=== PATIENT | female | born 1995 | race Caucasian/White ===

== ENCOUNTER 2021-05-16 10:25 | Inpatient (IN) | payer BC ==
[2021-05-16] MEDS ORDERED: Lidocaine 1% 50 ML MDV INJECT ONE (19:41)
[2021-05-16] MEDS ORDERED: Nalbuphine 10 MG/1 ML Vial IVPUSH PRN (19:41)
[2021-05-16] MEDS ORDERED: Sodium Chloride 0.9% 10 ML Syringe FLUSH PRN (19:41)
[2021-05-16] MEDS ORDERED: Ampicillin 2 GM in Sodium Chloride 0.9% 100 ML IV ONE (19:41)
[2021-05-16] MEDS ORDERED: Ondansetron 4 MG/2 ML SDV IVPUSH PRN (19:41)
[2021-05-16] MEDS ORDERED: Oxytocin/Lactated Ringers 10 UNIT/1,000 ML BAG IV SCH ×2 (19:45)
--- NOTE | 2021-05-16 22:21 | PCM.LDHP ---
L&D History of Present Illness - General Date of Service: 05/16/21 Admit Problem/Dx: Patient Status Order with Admit Dx/Problem 05/16/21 19:41 Patient Status [ADT] Routine Admission Diagnosis/Problem Admission Diagnosis/Problem 05/16/21 22:12 Yanna is a 25-year-old 2 para 1-0-0-1 female admitted on the evening of 05/16/2021 at 39-0/7 weeks gestational age with an HEAVENLY of 05/23/2021 for elective induction of labor. Source of Information: Patient, Other History Limitations: Reports: No Limitations - History of Present Illness Introduction:: Yanna is a 25-year-old 2 para 1-0-0-1 female admitted on the evening of 05/16/2021 at 39-0/7 weeks gestational age with an HEAVENLY of 05/23/2021 for elective induction of labor. The process of induction of labor, its risks, benefits, limitations and alternatives of care including allowing for natural onset of labor are discussed in detail with patient and her Octavio. They appear to understand and wish to proceed. ONSITE HEALTH COACH history: Patient is 2 para 1-0-0-1. Patient had menarche at usual of age. Cycles q. 25 days. She was not on control pills at the time conception. Her LMP was 08/16/2020 which is how her was dated. That HEAVENLY is supported by at least 3 ultrasounds done through the course of the . Her past obstetric history includes the followin. Male infant born 07/01/2019 at 39-1/7 weeks gestational age8 pounds 0 ounces. . Epidural for labor analgesia. Baby was born at [facility]. course: Patient was seen since early in . First visit was at 10 weeks and 4 days. She was seen on a very regular basis. Weight gain has been from 203 pounds up to 232 pounds for 29 pound increase. Her vital signs remained stable throughout the course and her fundal height growth was appropriate. Patient is group B strep positive as diagnosed on initial urine culture at first visit. She is hypothyroid and is on [place] Thyroid replacement. She had her initial complete ultrasound showed prominent appearing renal pelvis ease. On reevaluation at 30 weeks normal kidney and bladder were present. Her Tdap was done on 05/08/2021. Second trimester thyroid function studies were normal. Initial thyroid function studies on 10/16/2020 were also normal. She is clinically euthyroid. Patient is rubella immune. She had her hepatitis B immunizations in 1995. Her meningococcal immunizations in 2012. Laboratory testing shows blood to be all positive with a negative MB screen. First hemoglobin was 12.8 g/dL and platelets are 370,000. She is rubella immune. RPR is nonreactive. Urine culture was positive for group B strep. Hepatitis B surface antigen and HIV assays along with chlamydia and gonorrhea tests were both negative. Last TSH done on 02/25/2021 was 1.05 which is normal. Her 1 hour GTT was normal at 104. Second trimester hemoglobin was 11.7 g/dL and platelets are 345,000. Her RPR done on 02/26/2021 was nonreactive. Allergies: None Medications: 1. Kalida Thyroid 15 mg p.o. daily and 30 mg p.o. daily for a total of 45 mg p.o. daily 2. vitamins daily 3. Fish oil caps Past medical history: 1. x1. 2 hypothyroidism diagnosed in 2017 now on [place] Thyroid. 3. Tonsillectomy 2013. Family history: Mother and father are alive and well. 1 sister and one half sister alive and well. Maternal grandmother is alive with breast cancer diagnosed at age 74 years. Paternal grandfather secondary to an VT at age 62. Paternal grandmother alive and well but had gallbladder cancer. Was a smoker is now age 77. Paternal grandfather is alive at age 75 with coronary artery bypass surgery. No anesthesia, bleeding, blood clotting or problems noted in the family. Social history: Patient is . She is a chicken dresser, lives in [place], [place]. She she denies any significant also alcohol, drugs or tobacco. Her 's name is Octavio. Review of systems: In general patient has no complaints. Baby has been active. Skin: Negative Lungs: No infectious symptoms or shortness of breath Cardiovascular: No chest pain or exercise intolerance Breasts: No lumps, changes in size, pain, dimpling, discharge or axillary or supraclavicular concerns. Changes associated with . GI: Negative : Body habitus changes consistent with . Musculoskeletal: Negative Neurological: Negative Physical exam: In general the patient is well-developed, well-nourished, pleasant female of stated age in no acute distress. On last evaluation clinic on 05/13/2021 blood pressure was 108/68. Weight was 232 pounds with pregravid weight 203 pounds for a 29 pound increase. Height is 5 feet 5 inches. Prepregnancy body mass index is 32.1. Skin is warm dry without lesions. HEENT, neck and back within normal limits. Lungs are clear with good breath sounds in all lung yadav. Cardiovascular exam shows regular and rhythm without murmurs. Breast exam done at first annual visit was within normal is. Is not repeated at this time. Patient plans to breast-feed. Abdomen is gravid with last fundal height in clinic at 39.5 cm. Baby in vertex presentation by Melchor maneuvers. Genital exam on last evaluation clinic on 05/13/2021 was 2 cm dilated, 60% effaced, very soft, mid position, -3 station.. Extremities and neurological exam are grossly within normal limits with the exception of trace edema in bilateral lower extremities. - Related Data Allergies/Adverse Reactions: Allergies Allergy/AdvReac Type Severity Reaction Status Date / Time No Known Allergies Allergy Verified 06/30/19 19:49 Home Medications: Home Meds Pnv No.95/Ferrous Fum/Folic AC [ Tablet] 1 each PO DAILY 06/30/19 [History] Thyroid [Kal[place] Thyroid] 1 tab PO DAILY 06/30/19 [History] Docusate Sodium [Colace] 100 mg PO BID PRN cap 07/02/19 [Rx] Ibuprofen [Motrin] 600 mg PO Q4H PRN tablet 07/02/19 [Rx] Past Medical History - Past Health History Medical/Surgical History: Denies Medical/Surgical History Cardiovascular History: Reports: None Respiratory History: Reports: None Gastrointestinal History: Reports: GERD Genitourinary History: Reports: None ONSITE HEALTH COACH History: Reports: Musculoskeletal History: Reports: None Neurological History: Reports: None Psychiatric History: Reports: None Endocrine/Metabolic History: Reports: Hypothyroidism Hematologic History: Reports: Anemia, Other (See Below) Other Hematologic History: Pt taking a daily Iron supplement Immunologic History: Reports: None Oncologic (Cancer) History: Reports: None Dermatologic History: Reports: None - Past Surgical History Head Surgeries/Procedures: Reports: None HEENT Surgical History: Reports: Oral Surgery, Tonsillectomy GI Surgical History: Reports: Other (See Below) Other GI Surgeries/Procedures: Endoscopy Social & Family History - Family History Family Medical History: No Pertinent Family History - Tobacco Use Tobacco Use Status *Q: Never Tobacco User Second Hand Smoke Exposure: No - Caffeine Use Caffeine Use: Reports: None - Recreational Drug Use Recreational Drug Use: No H&P Review of Systems - Review of Systems: Review Of Systems: See Below L&D Exam - Exam Exam: See Below - Vital Signs Vital Signs: Last Vital Signs Temp 37.4 C 05/16/21 19:52 Pulse 90 05/16/21 19:52 Resp 16 05/16/21 19:52 BP 136/86 05/16/21 19:52 Pulse Ox 99 05/16/21 19:52 Weight: 106.503 kg - Patient Data Lab Results Last 24 hrs: Laboratory Results - last 24 hr 05/16/21 05/16/21 Range/Units 20:05 20:30 WBC 10.40 H (3.98-10.04) K/mm3 RBC 4.41 (3.98-5.22) M/mm3 Hgb 12.4 (11.2-15.7) gm/dl Hct 38.4 (34.1-44.9) % MCV 87.1 (79.4-94.8) fl MCH 28.1 (25.6-32.2) pg MCHC 32.3 (32.2-35.5) g/dl RDW Std Deviation 44.2 (36.4-46.3) fL Plt Count 316 (182-369) K/mm3 MPV 9.4 (9.4-12.3) fl Neut % (Auto) 71.0 (34.0-71.1) % Lymph % (Auto) 22.8 (19.3-51.7) % [place] % (Auto) 4.7 (4.7-12.5) % Eos % (Auto) 0.5 L (0.7-5.8) Baso % (Auto) 0.2 (0.1-1.2) % Neut # (Auto) 7.39 H (1.56-6.13) K/mm3 Lymph # (Auto) 2.37 (1.18-3.74) K/mm3 [place] # (Auto) 0.49 H (0.24-0.36) K/mm3 Eos # (Auto) 0.05 (0.04-0.36) K/mm3 Baso # (Auto) 0.02 (0.01-0.08) K/mm3 SARS-CoV-2 RNA (LINDSAY) Negative (NEGATIVE) Result Diagrams: 05/16/21 20:05 - Problem List (1) Group B streptococcal carriage complicating SNOMED Code(s): 423276893791684 ICD Code: O99.820 - STREPTOCOCCUS B CARRIER STATE COMPLICATING Status: Acute Current Visit: Yes (2) Hypothyroidism affecting in third trimester SNOMED Code(s): 108833327, 283585277 ICD Code: O99.283 - ENDO, NUTRITIONAL AND METAB DISEASES COMP PREG, THIRD TRI; E03.9 - HYPOTHYROIDISM, UNSPECIFIED Status: Acute Current Visit: Yes (3) 39 weeks gestation of SNOMED Code(s): 29415801 ICD Code: Z3A.39 - 39 WEEKS GESTATION OF Status: Acute Current Visit: No Problem List Initiated/Reviewed/Updated: Yes Orders Last 24hrs: Active Orders 24 hr Category Date Time Status Patient Status [ADT] Routine ADT 05/16/21 19:41 Active Activity as Tolerated [RC] PFP Care 05/16/21 19:41 Active Communication Order [RC] ASDIRECTED Care 05/16/21 19:41 Active Heart Tones [RC] ASDIRECTED Care 05/16/21 19:42 Active Non Stress Test [RC] PER UNIT ROUTINE Care 05/16/21 19:41 Active Notify Provider [RC] PFP Care 05/16/21 19:41 Active Notify Provider [RC] PRN Care 05/16/21 19:41 Active Peripheral IV Care [RC] . DIRECTED Care 05/16/21 19:42 Active Vital Signs [RC] PER UNIT ROUTINE Care 05/16/21 19:41 Active Regular Diet [DIET] Diet 05/16/21 Breakfast Active HEPATITIS C ANTIBODY [CHEM] Routine Lab 05/16/21 20:05 Received RAPID PLASMA REAGIN,RPR [CHEM] Routine Lab 05/16/21 20:05 Received Ampicillin 1 gm Med 05/17/21 00:00 Active Sodium Chloride 0.9% [Normal Saline] 100 ml IV Q4H Lactated Ringers [Ringers, Lactated] 1,000 ml Med 05/16/21 19:45 Active IV ASDIRECTED Nalbuphine [Nubain] Med 05/16/21 19:41 Active 10 mg IVPUSH Q2H PRN Ondansetron [Zofran] Med 05/16/21 19:41 Active 4 mg IVPUSH Q4H PRN Oxytocin/Lactated Ringers [Pitocin in LR 10 Units/1,000 Med 05/16/21 19:45 Active ML] 10 unit in 1,000 ml IV .CONTINUOUS Oxytocin/Lactated Ringers [Pitocin in LR 10 Units/1,000 Med 05/16/21 19:45 Active ML] 10 unit in 1,000 ml IV TITRATE Sodium Chloride 0.9% [Saline Flush] Med 05/16/21 19:41 Active 10 ml FLUSH ASDIRECTED PRN Electronic Heart Tones Ext w TOCO [WOMSER] Ot 05/16/21 19:41 Ordered Routine Electronic Heart Tones Internal [WOMSER] Per Unit Ot 05/16/21 19:41 Ordered Routine Peripheral IV Insertion Adult [OM.PC] Routine Oth 05/16/21 19:41 Ordered Resuscitation Status Routine Resus Stat 05/16/21 19:41 Ordered Medication Orders Ampicillin Sodium 1 gm/ Sodium (Chloride) 100 mls @ 200 mls/hr IV Q4H IZZY Oxytocin/Lactated Ringer's (Pitocin In Lr 10 Units/1,000 Ml) 10 unit in 1,000 mls @ 12 mls/hr IV TITRATE IZZY; Protocol Oxytocin/Lactated Ringer's (Pitocin In Lr 10 Units/1,000 Ml) 10 unit in 1,000 mls @ 500 mls/hr IV .CONTINUOUS IZZY Lactated Ringer's (Ringers, Lactated) 1,000 mls @ 100 mls/hr IV ASDIRECTED IZZY Nalbuphine HCl (Nalbuphine 10 Mg/1 Ml Vial) 10 mg IVPUSH Q2H PRN PRN Reason: Pain Ondansetron HCl (Ondansetron 4 Mg/2 Ml Sdv) 4 mg IVPUSH Q4H PRN PRN Reason: Nausea/Vomiting Sodium Chloride (Sodium Chloride 0.9% 10 Ml Syringe) 10 ml FLUSH ASDIRECTED PRN PRN Reason: Keep Vein Open Assessment/Plan Comment:: 1. Yanna is a 25-year-old 2 para 1-0-0-1 female admitted on the evening of 05/16/2021 at 39-0/7 weeks gestational age with an HEAVENLY of 05/23/2021 for elective induction of labor. 2. Group B strep positive statuspatient candidate for ampicillin prophylaxis per protocol in labor delivery. 3. Patient planning to breast-feed 4. Patient desiring epidural in labor and delivery. 5. Risk factors for include: Hypothyroidism, distance from the hospital, group B strep positive status. 6. Tdap given 05/08/2021 7. Patient is rubella immune. Plan: 1. Antibiotics with ampicillin per protocol for group B strep positive status. 2. Pitocin induction of labor to be followed by AROM augmentation when possible 3. Epidural as needed for patient for labor analgesia. 4. Support breast-feeding decision 5. Continue Kalida Thyroid as at present 6. Admission labs to consist of CBC, COVID-19 testing, RPR per protocol.
[2021-05-16] MEDS ORDERED: Bupivacaine/fentaNYL/NS 100 ML Bag EPIDUR PRN (23:03)
[2021-05-16] MEDS ORDERED: diphenhydrAMINE 50 MG/ML SDV IVPUSH PRN (23:03)
[2021-05-16] MEDS ORDERED: fentaNYL 100 MCG/2 ML SDV EPIDUR PRN (23:03)
[2021-05-16] MEDS: Lactated Ringers 1,000 ML IV SCH (23:07)
[2021-05-17] MEDS ORDERED: Bupivacaine 0.25% 10 ML SDV ONE
[2021-05-17] MEDS: Ampicillin 1 GM in Sodium Chloride 0.9% 100 ML IV SCH ×3 (00:04→08:08)
--- NOTE | 2021-05-17 02:29 | PCM.PREANE ---
Preanesthetic Assessment - Procedure Proposed Procedure: epidural - Anesthesia/Transfusion/Family Hx Anesthesia History: Prior Anesthesia Without Reaction Family History of Anesthesia Reaction: No Transfusion History: No Prior Transfusion(s) - Review of Systems General: Fatigue Pulmonary: No Symptoms Cardiovascular: No Symptoms Gastrointestinal: Abdominal Pain (labor) Neurological: No Symptoms Other: Reports: Thyroid Problems (hypothyroid) - Physical Assessment Vital Signs: Last Vital Signs Temp 37.4 C 05/16/21 19:52 Pulse 90 05/16/21 19:52 Resp 16 05/16/21 19:52 BP 136/86 05/16/21 19:52 Pulse Ox 99 05/16/21 19:52 Height: 1.65 m Weight: 106.503 kg ASA Class: 2 Mental Status: Alert & Oriented x3 Airway Class: Mallampati = 2 Dentition: Reports: Normal Dentition Thyro-Mental Finger Breadths: 2 Mouth Opening Finger Breadths: 2 ROM/Head Extension: Full Lungs: Clear to Auscultation, Normal Respiratory Effort Cardiovascular: Regular Rate, Regular Rhythm - Lab Values: Laboratory Last Values WBC 10.40 K/mm3 (3.98-10.04) H 05/16/21 20:05 RBC 4.41 M/mm3 (3.98-5.22) 05/16/21 20:05 Hgb 12.4 gm/dl (11.2-15.7) 05/16/21 20:05 Hct 38.4 % (34.1-44.9) 05/16/21 20:05 MCV 87.1 fl (79.4-94.8) 05/16/21 20:05 MCH 28.1 pg (25.6-32.2) 05/16/21 20:05 MCHC 32.3 g/dl (32.2-35.5) 05/16/21 20:05 RDW Std Deviation 44.2 fL (36.4-46.3) 05/16/21 20:05 Plt Count 316 K/mm3 (182-369) 05/16/21 20:05 MPV 9.4 fl (9.4-12.3) 05/16/21 20:05 Neut % (Auto) 71.0 % (34.0-71.1) 05/16/21 20:05 Lymph % (Auto) 22.8 % (19.3-51.7) 05/16/21 20:05 [place] % (Auto) 4.7 % (4.7-12.5) 05/16/21 20:05 Eos % (Auto) 0.5 (0.7-5.8) L 05/16/21 20:05 Baso % (Auto) 0.2 % (0.1-1.2) 05/16/21 20:05 Neut # (Auto) 7.39 K/mm3 (1.56-6.13) H 05/16/21 20:05 Lymph # (Auto) 2.37 K/mm3 (1.18-3.74) 05/16/21 20:05 [place] # (Auto) 0.49 K/mm3 (0.24-0.36) H 05/16/21 20:05 Eos # (Auto) 0.05 K/mm3 (0.04-0.36) 05/16/21 20:05 Baso # (Auto) 0.02 K/mm3 (0.01-0.08) 05/16/21 20:05 RPR Non-reactive (NONREACTIVE) 05/16/21 20:05 SARS-CoV-2 RNA (LINDSAY) Negative (NEGATIVE) 05/16/21 20:30 - Allergies Allergies/Adverse Reactions: Allergies Allergy/AdvReac Type Severity Reaction Status Date / Time No Known Allergies Allergy Verified 06/30/19 19:49 - Anesthesia Plan Pre-Op Medication Ordered: None - Acknowledgements Anesthesia Type Planned: Epidural Pt an Appropriate Candidate for the Planned Anesthesia: Yes Alternatives and Risks of Anesthesia Discussed w Pt/Guardian: Yes Pt/Guardian Understands and Agrees with Anesthesia Plan: Yes PreAnesthesia Questionnaire - Past Health History Medical/Surgical History: Denies Medical/Surgical History Cardiovascular History: Reports: None Respiratory History: Reports: None Gastrointestinal History: Reports: GERD Genitourinary History: Reports: None CHECK VIEWER History: Reports: Musculoskeletal History: Reports: None Neurological History: Reports: None Psychiatric History: Reports: None Endocrine/Metabolic History: Reports: Hypothyroidism Hematologic History: Reports: Anemia, Other (See Below) Other Hematologic History: Pt taking a daily Iron supplement Immunologic History: Reports: None Oncologic (Cancer) History: Reports: None Dermatologic History: Reports: None - Past Surgical History Head Surgeries/Procedures: Reports: None HEENT Surgical History: Reports: Oral Surgery, Tonsillectomy GI Surgical History: Reports: Other (See Below) Other GI Surgeries/Procedures: Endoscopy - SUBSTANCE USE Tobacco Use Status *Q: Never Tobacco User Second Hand Smoke Exposure: No Recreational Drug Use History: No - HOME MEDS Home Medications: Home Meds Pnv No.95/Ferrous Fum/Folic AC [ Tablet] 1 each PO DAILY 06/30/19 [History] Thyroid [[place] Thyroid] 1 tab PO DAILY 06/30/19 [History] Ferrous Sulfate [Iron] 1 tab PO DAILY 05/16/21 [History] Fish Oil/[place]-3 Fatty Acids [Fish Oil 1,000 MG] 1 tab PO DAILY 05/16/21 [History] Omeprazole Magnesium [Prilosec] 1 tab PO DAILY 05/16/21 [History] - CURRENT (IN HOUSE) MEDS Current Meds: Current Medications Diphenhydramine HCl (Diphenhydramine 50 Mg/Ml Sdv) 25 mg IVPUSH Q6H PRN PRN Reason: pruritis Ephedrine Sulfate (Ephedrine 50 Mg/Ml Sdv) 5 mg IVPUSH ASDIRECTED PRN PRN Reason: Hypotension Fentanyl (Fentanyl 100 Mcg/2 Ml Sdv) 100 mcg EPIDUR Q3H PRN PRN Reason: Pain Last Admin: 05/17/21 01:56 Dose: 100 mcg Documented by: Fentanyl/Bupivacaine HCl (Bupivacaine/Fentanyl/Ns 100 Ml Bag) 100 ml EPIDUR ASDIRECTED PRN PRN Reason: Pain Last Admin: 05/17/21 01:56 Dose: 100 ml Documented by: Ampicillin Sodium 1 gm/ Sodium (Chloride) 100 mls @ 200 mls/hr IV Q4H IZZY Last Admin: 05/17/21 00:04 Dose: 200 mls/hr Documented by: Oxytocin/Lactated Ringer's (Pitocin In Lr 10 Units/1,000 Ml) 10 unit in 1,000 mls @ 12 mls/hr IV TITRATE IZZY; Protocol Last Titration: 05/17/21 01:35 Dose: 6 munits/min, 36 mls/hr Documented by: Oxytocin/Lactated Ringer's (Pitocin In Lr 10 Units/1,000 Ml) 10 unit in 1,000 mls @ 500 mls/hr IV .CONTINUOUS IZZY Lactated Ringer's (Ringers, Lactated) 1,000 mls @ 100 mls/hr IV ASDIRECTED IZZY Last Admin: 05/16/21 23:07 Dose: 100 mls/hr Documented by: Nalbuphine HCl (Nalbuphine 10 Mg/1 Ml Vial) 10 mg IVPUSH Q2H PRN PRN Reason: Pain Ondansetron HCl (Ondansetron 4 Mg/2 Ml Sdv) 4 mg IVPUSH Q4H PRN PRN Reason: Nausea/Vomiting Sodium Chloride (Sodium Chloride 0.9% 10 Ml Syringe) 10 ml FLUSH ASDIRECTED PRN PRN Reason: Keep Vein Open Discontinued Medications Ampicillin Sodium 2 gm/ Sodium (Chloride) 100 mls @ 200 mls/hr IV ONETIME ONE Stop: 05/16/21 20:10 Last Admin: 05/16/21 20:35 Dose: 200 mls/hr Documented by: Lidocaine HCl (Lidocaine 1% 50 Ml Mdv) 50 ml INJECT ONETIME ONE Stop: 05/16/21 19:42
[2021-05-17] MEDS: ePHEDrine 50 MG/ML SDV IVPUSH PRN ×6 (02:35→05:39)
[2021-05-17] MEDS: Lactated Ringers 1,000 ML IV SCH ×2 (02:40→03:19)
[2021-05-17] MEDS ORDERED: Docusate Sodium 100 MG Cap PO PRN (11:03)
[2021-05-17] MEDS ORDERED: Benzocaine/Menthol 20%-0.5% Spray 56 GM Canister TOP PRN (11:03)
[2021-05-17] MEDS ORDERED: Acetaminophen 325 MG Tab PO PRN (11:03)
[2021-05-17] MEDS ORDERED: Witch Hazel Medicated Pads 40/Jar TOP PRN (11:03)
--- NOTE | 2021-05-17 11:09 | PCM.SN.2 ---
- Free Text/Narrative Note: Delivery note: Stage I: Yanna is a 25-year-old 2 para 1-0-0-1 female admitted on the evening of 05/16/2021 at 39-0/7 weeks gestational age with an HEAVENLY of 05/23/2021 for elective induction of labor. She is group B strep positive also was started on ampicillin group B strep prophylaxis per protocol. She was then started on Pitocin per IV to facilitate increase in uterine contractions and initiate labor. She progressed steadily through the night. In the a.m. patient underwent epidural for labor analgesia. She had good results with this. She had AROM with resultant clear amniotic fluid. IUPC was placed to closely monitor contraction strength so as to more accurately adjust the pitocin rate. heart tones reassuring throughout the entire labor course. She progressed to complete cervical dilation by approximately 1015 hrs. Stage II: Yanna delivered a viable, malik, male named José Negron at 1030 hrs. on 05/17/2021 in a direct occiput anterior position. The baby was noted to have a cord around the neck x1. This is moderately tight and was reduced over the baby's body. The baby shoulders were then delivered with gentle downward and then upward traction to deliver the anterior and posterior shoulder respectively. The baby then delivered completely and was placed on mom's abdomen. Baby was dried with a warm blanket. Pitocin was increased to 500 cc an hour. Same solution was used as was used for induction of labor. This to increase uterine tone and decrease likelihood of uterine bleeding. The umbilical cord was allowed to pulsate x2 to 3 minutes and then was clamped x2 and cut by the baby's Father Octavio. Three-vessel umbilical cord. Cord blood was obtained. Patient is noted to have a small second-degree laceration which was repaired with 3-0 Monocryl suture using labor epidural analgesia for perineal laceration anesthesia. She tolerated this well. Stage III: The placenta delivered at 1037 hrs. in a Steele presentation. It appeared intact complete and was discarded per patient desire. Umbilical cord had a marginal insertion. Patient plans to breast-feed. Estimated blood loss was 200 cc. Condition: Good.
[2021-05-17] MEDS: Ibuprofen 600 MG Tab PO PRN (18:39)
[2021-05-18] MEDS: Ibuprofen 600 MG Tab PO PRN (05:14)
--- NOTE | 2021-05-18 08:04 | PCM.DCSUM1 ---
Discharge Summary - Discharge Data Discharge Date: 05/18/21 Discharge Disposition: Home, Self-Care 01 Condition: Good - Referral to Home Health Primary Care Physician: Jack Garcia MD - Patient Summary/Data Complications: None Consults: None Recommended Follow-up Testing/Procedures: Follow up in 3 weeks for check Hospital Course: 25 y/o presented at 39 0/7 wks for elective IOL. Progressed well and underwent an uncomplicated . See delivery note. did well and was discharged home on PPD#1 - Patient Instructions Diet: Regular Diet as Tolerated Activity: As Tolerated Activity, Other: Pelvic rest for 6 weeks Driving: May Drive Today Showering/Bathing: May Shower Showering/Bathing, Other: May Bathe Notify Provider of: Fever, Increased Pain, Swelling and Redness, Drainage, Nausea and/or Vomiting - Discharge Plan *PRESCRIPTION DRUG MONITORING PROGRAM REVIEWED*: No *COPY OF PRESCRIPTION DRUG MONITORING REPORT IN PATIENT JASON: No Home Medications: Home Meds Pnv No.95/Ferrous Fum/Folic AC [ Tablet] 1 each PO DAILY 06/30/19 [History] Thyroid [[place] Thyroid] 1 tab PO DAILY 06/30/19 [History] Docusate Sodium [Colace] 100 mg PO BID PRN cap 05/17/21 [Rx] Ibuprofen [Motrin] 600 mg PO Q4H PRN tablet 05/17/21 [Rx] Referrals: Jack Garcia MD [Primary Care Provider] - (3 weeks for check ) - Discharge Summary/Plan Comment DC Time >30 min.: No - Patient Data Vitals - Most Recent: Last Vital Signs Temp 36.6 C 05/18/21 05:02 Pulse 74 05/18/21 05:02 Resp 15 05/18/21 05:02 BP 119/75 05/18/21 05:02 Pulse Ox 98 05/18/21 05:02 Weight - Most Recent: 106.503 kg Med Orders - Current: Current Medications Acetaminophen (Acetaminophen 325 Mg Tab) 650 mg PO Q4H PRN PRN Reason: mild pain or fever Last Admin: 05/17/21 13:49 Dose: 650 mg Documented by: Benzocaine/Menthol (Benzocaine/Menthol 20%-0.5% [place] 56 Gm Canister) 0 gm TOP ASDIRECTED PRN PRN Reason: Perineal Comfort Measure Last Admin: 05/17/21 12:49 Dose: 1 can Documented by: Docusate Sodium (Docusate Sodium 100 Mg Cap) 100 mg PO BID PRN PRN Reason: Constipation Last Admin: 05/18/21 05:51 Dose: 100 mg Documented by: Ibuprofen (Ibuprofen 600 Mg Tab) 600 mg PO Q4H PRN PRN Reason: Mild pain or fever Last Admin: 05/18/21 05:14 Dose: 600 mg Documented by: Thyroid 45 Mg Dose * * Patient's Own Med 0 each PO DAILY [facility] Prenat Multivit/Clay Caster/Iron/Folic Ac ( Multivitamin With Calcium/Folic Acid/Iron Tab) 1 each PO DAILY [facility] Witch Tatiana (Witch Tatiana Medicated Pads 40/Jar) 1 pad TOP ASDIRECTED PRN PRN Reason: Perineal Comfort Measure Last Admin: 05/17/21 12:49 Dose: 1 jar Documented by: Discontinued Medications Bupivacaine HCl (Bupivacaine 0.25% 10 Ml Sdv) 10 ml .ROUTE .STK-MED ONE Stop: 05/17/21 00:01 Diphenhydramine HCl (Diphenhydramine 50 Mg/Ml Sdv) 25 mg IVPUSH Q6H PRN PRN Reason: pruritis Ephedrine Sulfate (Ephedrine 50 Mg/Ml Sdv) 5 mg IVPUSH ASDIRECTED PRN PRN Reason: Hypotension Last Admin: 05/17/21 05:39 Dose: 5 mg Documented by: Fentanyl (Fentanyl 100 Mcg/2 Ml Sdv) 100 mcg EPIDUR Q3H PRN PRN Reason: Pain Last Admin: 05/17/21 01:56 Dose: 100 mcg Documented by: Fentanyl/Bupivacaine HCl (Bupivacaine/Fentanyl/Ns 100 Ml Bag) 100 ml EPIDUR ASDIRECTED PRN PRN Reason: Pain Last Admin: 05/17/21 01:56 Dose: 100 ml Documented by: Ampicillin Sodium 2 gm/ Sodium (Chloride) 100 mls @ 200 mls/hr IV ONETIME ONE Stop: 05/16/21 20:10 Last Admin: 05/16/21 20:35 Dose: 200 mls/hr Documented by: Ampicillin Sodium 1 gm/ Sodium (Chloride) 100 mls @ 200 mls/hr IV Q4H IZZY Last Admin: 05/17/21 08:08 Dose: 200 mls/hr Documented by: Oxytocin/Lactated Ringer's (Pitocin In Lr 10 Units/1,000 Ml) 10 unit in 1,000 mls @ 12 mls/hr IV TITRATE IZZY; Protocol Last Titration: 05/17/21 09:22 Dose: 18 munits/min, 108 mls/hr Documented by: Oxytocin/Lactated Ringer's (Pitocin In Lr 10 Units/1,000 Ml) 10 unit in 1,000 mls @ 500 mls/hr IV .CONTINUOUS IZZY Lactated Ringer's (Ringers, Lactated) 1,000 mls @ 100 mls/hr IV ASDIRECTED IZZY Last Admin: 05/17/21 03:19 Dose: 100 mls/hr Documented by: Lidocaine HCl (Lidocaine 1% 50 Ml Mdv) 50 ml INJECT ONETIME ONE Stop: 05/16/21 19:42 Last Admin: 05/17/21 14:41 Dose: Not Given Documented by: Nalbuphine HCl (Nalbuphine 10 Mg/1 Ml Vial) 10 mg IVPUSH Q2H PRN PRN Reason: Pain Ondansetron HCl (Ondansetron 4 Mg/2 Ml Sdv) 4 mg IVPUSH Q4H PRN PRN Reason: Nausea/Vomiting Last Admin: 05/17/21 03:11 Dose: 4 mg Documented by: Sodium Chloride (Sodium Chloride 0.9% 10 Ml Syringe) 10 ml FLUSH ASDIRECTED PRN PRN Reason: Keep Vein Open
[2021-05-18] MEDS ORDERED: Prenatal Multivitamin with Calcium/Folic Acid/Iron Tab PO SCH (09:00)
[2021-05-18] MEDS ORDERED: THYROID 45 MG PO SCH (09:00)
== END 2021-05-18 13:45 | disposition home or self-care (01) | DRG 560 ==
LOC: JD.OB 10:25 → OBSVTOIN 05-17 10:25 → JD.OB 05-17 10:26
PROVIDERS: ADMIT Obstetrics & Gynecology; ATTEND Obstetrics & Gynecology
PROC: 10E0XZZ Delivery of Products of Conception, External Approach (ICD-10-PCS; principal; 2021-05-17)
PROC: 10907ZC Drainage of Amniotic Fluid, Therapeutic from Products of Conception, Via Natural or Artificial Opening (ICD-10-PCS; 2021-05-17)
PROC: 0KQM0ZZ Repair Perineum Muscle, Open Approach (ICD-10-PCS; 2021-05-17)
PROC: 3E033VJ Introduction of Other Hormone into Peripheral Vein, Percutaneous Approach (ICD-10-PCS; 2021-05-17)
PROC: 10H07YZ Insertion of Other Device into Products of Conception, Via Natural or Artificial Opening (ICD-10-PCS; 2021-05-17)
PROC: 3E0R3BZ Introduction of Anesthetic Agent into Spinal Canal, Percutaneous Approach (ICD-10-PCS; 2021-05-17)
PROC: 00HU33Z Insertion of Infusion Device into Spinal Canal, Percutaneous Approach (ICD-10-PCS; 2021-05-17)
DX: O99.62 Diseases of the digestive system complicating childbirth (principal); Z37.0 Single live birth; K21.9 Gastro-esophageal reflux disease without esophagitis; O99.02 Anemia complicating childbirth; D64.9 Anemia, unspecified; O99.284 Endocrine, nutritional and metabolic diseases complicating childbirth; E03.9 Hypothyroidism, unspecified; O69.1XX0 Labor and delivery complicated by cord around neck, with compression, not applicable or unspecified; O70.1 Second degree perineal laceration during delivery; Z20.822 Contact with and (suspected) exposure to COVID-19; Z3A.39 39 weeks gestation of pregnancy
CPT/HCPCS: 01967; 36415; 51702; 59025; 59409; 85025; 86592; 86803; A9270-GY; J0290; J2405; J2590; J3010; J3490; J7120; U0002

== ENCOUNTER 2025-01-09 07:11 | Inpatient (IN) | payer BC ==
[2025-01-09] MEDS ORDERED: Nalbuphine 10 MG/1 ML Vial IVPUSH PRN (07:13)
[2025-01-09] MEDS ORDERED: Lidocaine 1% 50 ML MDV INJECT PRN (07:13)
[2025-01-09] MEDS ORDERED: Acetaminophen 325 MG Tab PO PRN (07:13)
[2025-01-09] MEDS ORDERED: Sodium Chloride 0.9% 10 ML Syringe FLUSH PRN (07:13)
[2025-01-09] MEDS ORDERED: Oxytocin/0.9 % Sodium Chloride 30 UNIT/500 ML BAG IV SCH (07:15)
[2025-01-09 07:36] LABS: BASOPHILS PERCENT AUTO 0.4 % (0.0-1.0); EOSINOPHILS PERCENT AUTO 0.5 % (0.0-6.0); HEMATOCRIT 39.5 % (37.0-47.0); IMMATURE GRAN ABSOLUTE AUTO 0.13 K/mm3 (0.00-0.05); IMMATURE GRAN PERCENT AUTO 1.6 % (0.0-0.4); LYMPHOCYTES ABSOLUTE AUTO 1.8 K/mm3 (1.0-4.8); LYMPHOCYTES PERCENT AUTO 21.4 % (24.0-44.0); MEAN CORPUSCULAR HGB CONC 32.9 g/dl (32.0-36.0); MEAN CORPUSCULAR VOLUME 88.2 fl (83.0-99.0); MEAN PLATELET VOLUME 9.5 fl (9.4-12.3); MONOCYTES ABSOLUTE AUTO 0.4 K/mm3 (0.0-0.8); NEUTROPHILS ABSOLUTE AUTO 5.8 K/mm3 (1.8-7.7); NEUTROPHILS PERCENT AUTO 71.1 % (41.0-71.0); PLATELET COUNT,PLT 259 K/mm3 (150-400); RED BLOOD CELL COUNT 4.48 M/mm3 (4.10-5.30); WHITE BLOOD CELL COUNT,WBC 8.21 K/mm3 (3.9-11.3)
[2025-01-09] MEDS: Ampicillin 2 GM in Sodium Chloride 0.9% 100 ML IV ONE (08:01)
[2025-01-09] MEDS: Lactated Ringers 1,000 ML IV SCH (08:01)
[2025-01-09] MEDS: Oxytocin/0.9 % Sodium Chloride 30 UNIT/500 ML BAG IV SCH (08:09)
[2025-01-09] MEDS: Sodium Chloride 0.9% 10 ML Syringe FLUSH SCH (09:59)
[2025-01-09] MEDS: Ampicillin 1 GM in Sodium Chloride 0.9% 100 ML IV SCH (12:04)
[2025-01-09] MEDS ORDERED: fentaNYL 100 MCG/2 ML SDV EPIDUR PRN (14:19)
[2025-01-09] MEDS ORDERED: Naloxone 0.4 MG/ML SDV IVPUSH PRN (14:19)
[2025-01-09] MEDS ORDERED: diphenhydrAMINE 50 MG/ML SDV IVPUSH PRN (14:19)
[2025-01-09] MEDS ORDERED: ePHEDrine 50 MG/ML SDV IVPUSH PRN (14:19)
[2025-01-09] MEDS: Bupivacaine/fentaNYL/NS 100 ML Bag EPIDUR PRN (14:33)
[2025-01-09] MEDS: Ondansetron 4 MG/2 ML SDV IVPUSH PRN (15:36)
[2025-01-09] MEDS ORDERED: ceFAZolin 2 GM Vial IVPUSH ONE (17:31)
[2025-01-09] MEDS: ceFAZolin 2 GM in Water For Injection, Sterile 20 ML IV ONE (17:59)
[2025-01-09] MEDS ORDERED: Benzocaine/Menthol 20%-0.5% Spray 78 GM Cannister TOP PRN (18:28)
[2025-01-09] MEDS ORDERED: Docusate Sodium 100 MG Cap PO PRN (18:28)
[2025-01-09] MEDS ORDERED: Witch Hazel Medicated Pads 40/Jar TOP PRN (18:28)
[2025-01-09] MEDS: Ibuprofen 600 MG Tab PO SCH (19:32)
[2025-01-09] MEDS: Acetaminophen 325 MG Tab PO PRN (20:21)
[2025-01-09] MEDS ORDERED: Acetaminophen/Butalbital/Caffeine 325-50-40 MG Tab PO PRN (21:43)
[2025-01-09] MEDS ORDERED: oxyCODONE 5 MG Tab PO SCH (22:15)
[2025-01-09] MEDS: Cosyntropin 0.25 MG Vial IV ONE (22:25)
[2025-01-10] MEDS: Acetaminophen 325 MG Tab PO SCH (00:14)
[2025-01-10] MEDS ORDERED: Cosyntropin 0.25 MG Vial IV PRN (16:00)
== END 2025-01-10 18:03 | disposition home or self-care (01) | DRG 560 ==
LOC: JD.OB 07:11 → OBSVTOIN 17:01 → JD.OB 17:01
PROVIDERS: ADMIT Obstetrics & Gynecology; ATTEND Obstetrics & Gynecology
PROC: 10E0XZZ Delivery of Products of Conception, External Approach (ICD-10-PCS; principal; 2025-01-09)
PROC: 10907ZC Drainage of Amniotic Fluid, Therapeutic from Products of Conception, Via Natural or Artificial Opening (ICD-10-PCS; 2025-01-09)
PROC: 3E033VJ Introduction of Other Hormone into Peripheral Vein, Percutaneous Approach (ICD-10-PCS; 2025-01-09)
DX: O99.824 Streptococcus B carrier state complicating childbirth (principal); Z37.0 Single live birth; Z3A.39 39 weeks gestation of pregnancy
CPT/HCPCS: 36415; 51702; 59025; 59409; 85025; 86592; 86850; 86900; 86901; A9270-GY; J0290; J0690; J0834; J2405; J3490; J7120; J7999